=== PATIENT | male | born 1940 | race Caucasian/White ===

== ENCOUNTER 2019-12-15 03:38 | Emergency (ER) | payer BC, MEDICARE, OTHER ==
--- NOTE | 2019-12-15 04:52 | EDM.PDOC ---
<OfficerOsei - Last Filed: 12/15/19 04:53> ED HPI GENERAL MEDICAL PROBLEM - General Chief Complaint: General Stated Complaint: CHEST PAIN, JAW PAIN, SOB Time Seen by Provider: 12/15/19 04:35 Source of Information: Reports: Patient, Family, RN Notes Reviewed History Limitations: Reports: No Limitations - History of Present Illness INITIAL COMMENTS - FREE TEXT/NARRATIVE: 79-year-old gentleman presents to the emergency department today complaint of pain, he he describes his pain as sharp stabbing like electricity that would go in a inupiat starting in his chest than his jaw than his eye level in his head and would cycle back to his chest again. Pain started 2 hours ago. He states the pain is equal in all places lasted about 10 minutes continue to cycle through. While he was having this pain there was no nausea or vomiting no shortness of breath no diaphoresis he has no history of coronary artery disease does not use tobacco products. He is a poor historian when describing his symptoms. He states that he had some nausea and vomiting the day before yesterday but no pain and a couple of days ago he felt short of breath but he fell while he was going up hill. denies Pain Score (Numeric/FACES): 0 - Related Data Allergies Allergy/AdvReac Type Severity Reaction Status Date / Time opiates Allergy Other Uncoded 12/15/19 04:04 Home Meds: Home Meds Aspirin [Lo-Dose Aspirin EC] 81 mg PO DAILY 12/15/19 [History] Celecoxib 200 mg PO BID 12/15/19 [History] Ezetimibe [Zetia] 10 mg PO DAILY 12/15/19 [History] Losartan [Cozaar] 50 mg PO DAILY 12/15/19 [History] Propafenone HCl 225 mg PO BID 12/15/19 [History] atorvaSTATin [Lipitor] 80 mg PO DAILY 12/15/19 [History] Past Medical History HEENT History: Reports: Impaired Vision Cardiovascular History: Reports: Afib (Status post ablation), High Cholesterol Genitourinary History: Reports: Pyelonephritis, Renal Calculus Musculoskeletal History: Reports: Arthritis, Other (See Below) Other Musculoskeletal History: spinal stenosis Endocrine/Metabolic History: Reports: Obesity/BMI 30+ Dermatologic History: Reports: Other (See Below) Other Dermatologic History: brusis easily - Infectious Disease History Infectious Disease History: Reports: Chicken Pox, Measles, Mumps - Past Surgical History HEENT Surgical History: Reports: Tonsillectomy Cardiovascular Surgical History: Reports: Cardiac Ablation GI Surgical History: Reports: Colonoscopy, Hernia, Inguinal Male Surgical History: Reports: Other (See Below) Other Male Surgeries/Procedures: As child ureter surgery Musculoskeletal Surgical History: Reports: Knee Replacement, Shoulder Surgery Social & Family History - Tobacco Use Smoking Status *Q: Never Smoker Second Hand Smoke Exposure: No - Caffeine Use Caffeine Use: Reports: None - Alcohol Use Days Per Week of Alcohol Use: 7 Number of Drinks Per Day: 4 Total Drinks Per Week: 28 - Recreational Drug Use Recreational Drug Use: No ED ROS GENERAL - Review of Systems Review Of Systems: See Below Constitutional: Reports: No Symptoms HEENT: Reports: No Symptoms Respiratory: Reports: Shortness of Breath (A couple of days ago) Cardiovascular: Reports: Chest Pain GI/Abdominal: Reports: Nausea (Yesterday), Vomiting (Yesterday) : Reports: No Symptoms Musculoskeletal: Reports: No Symptoms Skin: Reports: No Symptoms Neurological: Reports: No Symptoms ED EXAM, GENERAL - Physical Exam Exam: See Below Exam Limited By: No Limitations General Appearance: Alert, WD/WN, No Apparent Distress Neck: Normal Inspection, Supple, Non-Tender, Full Range of Motion Respiratory/Chest: No Respiratory Distress, Lungs Clear, Normal Breath Sounds, No Accessory Muscle Use, Chest Non-Tender Cardiovascular: Regular Rate, Rhythm, No Murmur GI/Abdominal: Soft, Non-Tender Back Exam: Normal Inspection, Full Range of Motion, NT Extremities: Normal Range of Motion, Non-Tender, Pedal Edema (Trace) Departure - Departure Disposition: Home, Self-Care 01 Clinical Impression: Atypical chest pain - Discharge Information Instructions: Nonspecific Chest Pain, Adult, [id number] Referrals: PCP,None [Primary Care Provider] - Forms: ED Department Discharge Care Plan Goals: Increase activity as tolerated and recheck with your regular doctor this week r egarding test results and symptoms. Further evaluation may be indicated. Consider a daily medication to protect your stomach such as omeprazole Sepsis Event Note (ED) - Evaluation Sepsis Screening Result: No Definite Risk <Chris Serrano - Last Filed: 12/15/19 09:38> Course - Vital Signs Last Recorded V/S: Last Vital Signs Temp 99.1 F 12/15/19 04:22 Pulse 71 09/26/20 04:22 Resp 16 12/15/19 04:22 BP 148/78 H 12/15/19 04:22 Pulse Ox 96 12/15/19 04:22 - Orders/Labs/Meds Orders: Active Orders 24 hr Category Date Time Status Chest 2V [CR] Stat Exams 12/15/19 04:48 Taken EKG 12 Lead [EK] Stat Ther 12/15/19 04:48 Ordered Labs: Laboratory Tests 12/15/19 12/15/19 12/15/19 Range/Units 05:00 05:00 05:00 WBC 5.8 (4.5-11.0) K/uL RBC 3.22 L (4.30-5.90) M/uL Hgb 10.4 L (12.0-15.0) g/dL Hct 32.4 L (40.0-54.0) % MCV 101 H (80-98) fL MCH 32 H (27-31) pg MCHC 32 (32-36) % Plt Count 178 (150-400) K/uL Neut % (Auto) 49 (36-66) % Lymph % (Auto) 29 (24-44) % Victoria % (Auto) 12 H (2-6) % Eos % (Auto) 9 H (2-4) % Baso % (Auto) 1 (0-1) % Sodium 140 (140-148) mmol/L Potassium 4.2 (3.6-5.2) mmol/L Chloride 105 (100-108) mmol/L Carbon Dioxide 28 (21-32) mmol/L Anion Gap 7.5 (5.0-14.0) mmol/L BUN 25 H (7-18) mg/dL Creatinine 1.5 H (0.8-1.3) mg/dL Est Cr Clr Drug Dosing 41.25 mL/min Estimated GFR (MDRD) 45 L (>60) Glucose 92 (74-106) mg/dL Lactic Acid 0.9 (0.4-2.0) mmol/L Calcium 8.4 L (8.5-10.1) mg/dL Total Bilirubin 0.4 (0.2-1.0) mg/dL AST 24 (15-37) U/L ALT 31 (12-78) U/L Alkaline Phosphatase 65 (46-116) U/L Troponin I < 0.017 (0.000-0.056) ng/mL Total Protein 6.1 L (6.4-8.2) g/dL Albumin 3.2 L (3.4-5.0) g/dL Globulin 2.9 (2.3-3.5) g/dL Albumin/Globulin Ratio 1.1 L (1.2-2.2) Lipase 190 (73-393) U/L Urine Color (YELLOW) Urine Appearance (CLEAR) Urine pH (5.0-8.0) Ur Specific [place] (1.008-1.030) Urine Protein (NEGATIVE) mg/dL Urine Glucose (UA) (NEGATIVE) mg/dL Urine Ketones (NEGATIVE) mg/dL Urine Occult Blood (NEGATIVE) Urine Nitrite (NEGATIVE) Urine Bilirubin (NEGATIVE) Urine Urobilinogen (0.2-1.0) EU/dL Ur Leukocyte Esterase (NEGATIVE) Urine RBC (0-5) Urine WBC (0-5) Ur Epithelial Cells Amorphous Sediment Urine Bacteria Urine Mucus 12/15/19 12/15/19 Range/Units 05:40 07:00 WBC (4.5-11.0) K/uL RBC (4.30-5.90) M/uL Hgb (12.0-15.0) g/dL Hct (40.0-54.0) % MCV (80-98) fL MCH (27-31) pg MCHC (32-36) % Plt Count (150-400) K/uL Neut % (Auto) (36-66) % Lymph % (Auto) (24-44) % [place] % (Auto) (2-6) % Eos % (Auto) (2-4) % Baso % (Auto) (0-1) % Sodium (140-148) mmol/L Potassium (3.6-5.2) mmol/L Chloride (100-108) mmol/L Carbon Dioxide (21-32) mmol/L Anion Gap (5.0-14.0) mmol/L BUN (7-18) mg/dL Creatinine (0.8-1.3) mg/dL Est Cr Clr Drug Dosing mL/min Estimated GFR (MDRD) (>60) Glucose (74-106) mg/dL Lactic Acid (0.4-2.0) mmol/L Calcium (8.5-10.1) mg/dL Total Bilirubin (0.2-1.0) mg/dL AST (15-37) U/L ALT (12-78) U/L Alkaline Phosphatase (46-116) U/L Troponin I < 0.017 (0.000-0.056) ng/mL Total Protein (6.4-8.2) g/dL Albumin (3.4-5.0) g/dL Globulin (2.3-3.5) g/dL Albumin/Globulin Ratio (1.2-2.2) Lipase (73-393) U/L Urine Color Yellow (YELLOW) Urine Appearance Clear (CLEAR) Urine pH 7.0 (5.0-8.0) Ur Specific [place] 1.020 (1.008-1.030) Urine Protein Negative (NEGATIVE) mg/dL Urine Glucose (UA) Negative (NEGATIVE) mg/dL Urine Ketones Negative (NEGATIVE) mg/dL Urine Occult Blood Negative (NEGATIVE) Urine Nitrite Negative (NEGATIVE) Urine Bilirubin Negative (NEGATIVE) Urine Urobilinogen 0.2 (0.2-1.0) EU/dL Ur Leukocyte Esterase Negative (NEGATIVE) Urine RBC Not seen (0-5) Urine WBC Not seen (0-5) Ur Epithelial Cells Not seen Amorphous Sediment Not seen Urine Bacteria Not seen Urine Mucus Not seen - Re-Assessments/Exams Free Text/Narrative Re-Assessment/Exam: 12/15/19 07:32 Patient care turned over from Officer pending a second troponin. Patient did not develop any more symptoms, and second troponin is 0. He was discharged with a copy of all his labs and EKG will follow up with his primary provider this week. Departure - Departure Time of Disposition: 07:42 Sepsis Event Note (ED) - Focused Exam Vital Signs: Vital Signs Temp Pulse Resp BP Pulse Ox 12/15/19 04:22 99.1 F 71 16 148/78 H 96
--- NOTE | 2019-12-17 09:27 | CR ---
CHEST: 2 view CLINICAL HISTORY:Chest pain COMPARISON:None FINDINGS: The heart size, pulmonary vascularity and hilar structures are normal. No infiltrate effusion or pneumothorax is seen. There are 2 calcified granulomata in the right upper lobe. There are atherosclerotic changes in the aorta. IMPRESSION: No acute cardiopulmonary process
== END 2019-12-15 07:42 | disposition home or self-care (01) ==
LOC: JP.ED 03:38
DX: R07.89 Other chest pain (principal); R11.2 Nausea with vomiting, unspecified; R06.02 Shortness of breath; I48.91 Unspecified atrial fibrillation; E78.00 Pure hypercholesterolemia, unspecified; E66.9 Obesity, unspecified; Z68.30 Body mass index [BMI] 30.0-30.9, adult; Z88.5 Allergy status to narcotic agent; Z79.82 Long term (current) use of aspirin; Z79.899 Other long term (current) drug therapy
CPT/HCPCS: 36415; 71046; 71046-26; 80053; 81001; 83605; 83690; 84484; 85025; 93005; 99284; 99285-25

== ENCOUNTER 2022-09-22 16:21 | Emergency (ER) | payer MEDICARE | END 2022-09-22 17:40 | disposition home or self-care (01) | LOC: JP.ED 16:21 | DX: L03.115 Cellulitis of right lower limb (principal); E78.00 Pure hypercholesterolemia, unspecified; E66.9 Obesity, unspecified; I48.91 Unspecified atrial fibrillation; Z88.5 Allergy status to narcotic agent; Z79.01 Long term (current) use of anticoagulants; Z79.899 Other long term (current) drug therapy; Z68.29 Body mass index [BMI] 29.0-29.9, adult | CPT/HCPCS: 99283 ==